=== PATIENT | female | born 1935 | race Two or more races ===

== ENCOUNTER → 2017-09-25 | Emergency (ER) | payer OTHER ==
[~2017-09-25] VITALS: Ht 157.5 cm; Wt 65.8 kg
[~2017-09-25] MED LIST: DIOVAN HCT 3201 EAC1 PO; TOPROL XL50 M1 PO
== END | disposition home or self-care (01) ==
LOC: ER 14:41
DX: K57.90 Diverticulosis of intestine, part unspecified, without perforation or abscess without bleeding (principal); R10.84 Generalized abdominal pain

== ENCOUNTER 2017-10-31 09:23 | Emergency (ER) | payer OTHER ==
[~2017-10-31] VITALS: Ht 152.4 cm; Wt 64.4 kg
[~2017-10-31 09:23] MED LIST changes: +ACETAMINOPHEN500 M1 PO; +CIPRO500 MG PO; +HYDROCHLOROTHIA25 MG PO; +NIFE60TA3 PO; +SINGULAIR10 MG PO
[2017-10-31] MEDS ORDERED: COLCHICINE0.6 M1 PO (10:57)
[2017-10-31] MEDS ORDERED: PREDNISONE20 MG PO (10:57)
== END 2017-10-31 11:25 | disposition home or self-care (01) ==
LOC: ER 09:23 → EDBD 09:31 → ER 11:25
DX: M10.071 Idiopathic gout, right ankle and foot (principal); M79.674 Pain in right toe(s)

== ENCOUNTER → 2017-11-03 08:00 | Outpatient (CLI) | payer OTHER ==
[~2017-11-03] VITALS: Ht 152.4 cm; Wt 67.1 kg
[~2017-11-03 08:00] MED LIST changes: +COLCHICINE0.6 M1 PO; +PREDNISONE20 MG PO
== END | disposition home or self-care (01) ==
LOC: SURH 10-19 10:30 → LAB 08:00 → U 08:00 → SURH 11-09 12:30 → EDSTATUS 11-09 12:30 → EDBD 11-09 12:30 → SURH 11-09 23:15
DX: K57.20 Diverticulitis of large intestine with perforation and abscess without bleeding (principal); N82.3 Fistula of vagina to large intestine; K92.1 Melena

== ENCOUNTER 2017-11-08 10:01 | Inpatient (IN) | payer OTHER ==
[~2017-11-08] VITALS: Ht 152.4 cm; Wt 63.5 kg
== END 2017-11-13 13:56 | disposition home or self-care (01) | DRG 330 ==
LOC: ER 10:01 → EDBD 11:57 → ICU-2 11:57 → SURG 11-09 20:06
PROC: 3E0F7GC Introduction of Other Therapeutic Substance into Respiratory Tract, Via Natural or Artificial Opening (ICD-10-PCS; 2017-11-08)
PROC: 0DTN4ZZ Resection of Sigmoid Colon, Percutaneous Endoscopic Approach (ICD-10-PCS; principal; 2017-11-09)
PROC: 0TQB4ZZ Repair Bladder, Percutaneous Endoscopic Approach (ICD-10-PCS; 2017-11-09)
PROC: 0UQG4ZZ Repair Vagina, Percutaneous Endoscopic Approach (ICD-10-PCS; 2017-11-09)
PROC: 0DUU47Z Supplement Omentum with Autologous Tissue Substitute, Percutaneous Endoscopic Approach (ICD-10-PCS; 2017-11-09)
PROC: 0DJD8ZZ Inspection of Lower Intestinal Tract, Via Natural or Artificial Opening Endoscopic (ICD-10-PCS; 2017-11-09)
PROC: 4A033R1 Measurement of Arterial Saturation, Peripheral, Percutaneous Approach (ICD-10-PCS; 2017-11-09)
PROC: 4A12X4Z Monitoring of Cardiac Electrical Activity, External Approach (ICD-10-PCS; 2017-11-10)
PROC: B54CZZZ Ultrasonography of Left Lower Extremity Veins (ICD-10-PCS; 2017-11-11)
PROC: BT0BYZZ Plain Radiography of Bladder and Urethra using Other Contrast (ICD-10-PCS; 2017-11-12)
DX: K57.20 Diverticulitis of large intestine with perforation and abscess without bleeding (principal); N18.4 Chronic kidney disease, stage 4 (severe); N82.3 Fistula of vagina to large intestine; N17.8 Other acute kidney failure; I16.0 Hypertensive urgency; J45.20 Mild intermittent asthma, uncomplicated; J44.9 Chronic obstructive pulmonary disease, unspecified; G47.33 Obstructive sleep apnea (adult) (pediatric); N99.89 Other postprocedural complications and disorders of genitourinary system; R33.8 Other retention of urine; M25.462 Effusion, left knee; M11.262 Other chondrocalcinosis, left knee; I13.10 Hypertensive heart and chronic kidney disease without heart failure, with stage 1 through stage 4 chronic kidney disease, or unspecified chronic kidney disease

== ENCOUNTER 2018-11-11 08:30 | Day surgery (SDC) | payer OTHER | END 2018-11-11 13:40 | disposition home or self-care (01) | LOC: AMB-ENDOS 08:30 | DX: K57.20 Diverticulitis of large intestine with perforation and abscess without bleeding (principal); K64.1 Second degree hemorrhoids ==